=== PATIENT | male | born 1965 | race Caucasian/White ===

== ENCOUNTER 2020-05-09 12:21 | Outpatient (CLI) | payer OTHER, BC ==
--- NOTE | 2020-05-09 13:24 | XRAY Report ---
PROCEDURE: Knee 2 View RT INDICATIONS: KNEE PAIN,RT,ACUTE TECHNIQUE: 2 views of the right knee(s) were acquired. COMPARISON: None. FINDINGS: Bones: No fractures or dislocations. No suspicious bony lesions. There is moderate medial compartm ent and mild to moderate lateral compartment degenerative knee joint space thinning, to the degree th at significant asymmetric osteoarthritis appears present. Soft tissues: No joint effusion. No suspicious soft tissue calcifications. IMPRESSION: Asymmetric medial compartment degenerative knee joint osteoarthritis when compared to a lesser degree of degeneration at the lateral compartment. No trauma found. Reviewed by: Timothy Lancaster MD on 05/09/2020 1:23 PM PDT Approved by: Timothy Lancaster MD on 05/09/2020 1:23 PM PDT Station ID: [id number]
== END 2020-05-09 12:22 | disposition home or self-care (01) ==
LOC: DI 12:21
PROVIDERS: ATTEND Physician Assistant
DX: M17.11 Unilateral primary osteoarthritis, right knee (principal)

== ENCOUNTER 2021-12-19 10:04 | Outpatient (CLI) | payer OTHER, BC ==
--- NOTE | 2021-12-19 13:07 | XRAY Report ---
PROCEDURE: Toe(s) LT INDICATIONS: PAINFUL LT HALLUX TECHNIQUE: AP view of the foot and 2 views of the great toe. COMPARISON: None. FINDINGS: Bones: No acute fracture or dislocation. Possible mild cortical irregularity at the dorsal medial fir st proximal phalangeal head could represent a small erosion. No suspicious bony lesions. Soft tissues: No suspicious soft tissue densities. Prominent soft tissue edema in the great toe. IMPRESSION: Soft tissue edema in the great toe with questionable mild focal cortical irregularity at the dorsal m edial aspect of the first proximal phalangeal head. Findings could represent an inflammatory arthriti s or gout, versus cellulitis and possible osteomyelitis. Recommend correlation with clinical findings and laboratory values. Reviewed by: Kenny Bhatt MD on 12/19/2021 1:05 PM PDT Approved by: Kenny Bhatt MD on 12/19/2021 1:05 PM PDT Station ID: [id number]
== END 2021-12-19 10:05 | disposition home or self-care (01) ==
LOC: DI 10:04
PROVIDERS: ATTEND Podiatrist
DX: M79.675 Pain in left toe(s) (principal); M79.9 Soft tissue disorder, unspecified
CPT/HCPCS: 73660

== ENCOUNTER 2022-01-18 14:10 | Outpatient (CLI) | payer OTHER, BC ==
[2022-01-18 18:13] LABS: BASOPHILS % (AUTO) 0.7 %; EOSINOPHILS # (AUTO) 0.2 10^3/uL (0.0-0.7); EOSINOPHILS % (AUTO) 4.2 %; HCT - HEMATOCRIT 40.1 % (42.0-52.0); LYMPHOCYTES # (AUTO) 1.6 10^3/uL (1.5-3.5); LYMPHOCYTES % (AUTO) 28.7 %; MEAN CORPUSCULAR HEMOGLOBIN 31.9 pg (27.0-31.0); MEAN CORPUSCULAR HGB CONC 34.9 g/dL (32.0-36.0); MEAN CORPUSCULAR VOLUME 91.3 fL (80.0-94.0); MEAN PLATELET VOLUME 11.6 fL (7.4-11.4); MONOCYTES # (AUTO) 0.6 10^3/uL (0.0-1.0); MONOCYTES % (AUTO) 11.4 %; NEUTROPHILS % (AUTO) 54.8 %; PLT - PLATELET COUNT 184 10^3/uL (130-450); RED BLOOD COUNT 4.39 10^6/uL (4.70-6.10); RED CELL DISTRIBUTION WIDTH 12.9 % (12.0-15.0); WHITE BLOOD COUNT 5.5 x10^3/uL (4.8-10.8)
[2022-01-18 18:26] LABS: ALBUMIN 4.3 g/dL (3.2-5.5); ALBUMIN/GLOBULIN RATIO 1.7 (1.0-2.2); ALKALINE PHOSPHATASE 54 IU/L (42-121); ALT ALANINE AMINOTRANSFERASE 20 IU/L (10-60); AST ASPARTATE AMINOTRANSFERASE 19 IU/L (10-42); BILIRUBIN,TOTAL 1.1 mg/dL (0.2-1.0); BUN - BLOOD UREA NITROGEN 15 mg/dL (6-20); CALCIUM 9.2 mg/dL (8.5-10.3); CARBON DIOXIDE - CO2 27 mmol/L (21-32); CHLORIDE 102 mmol/L (101-111); CHOL/HDL RATIO 4.2 (<5.0); CHOLESTEROL 216 mg/dL; CREATININE 1.3 mg/dL (0.6-1.2); GFR - MDRD 57 (>89); GLUCOSE 83 mg/dL (70-100); HDL CHOLESTEROL 52 mg/dL; POTASSIUM 3.9 mmol/L (3.5-5.0); SODIUM 136 mmol/L (135-145); TOTAL PROTEIN 6.8 g/dL (6.7-8.2); TRIGLYCERIDES 439 mg/dL; URIC ACID 9.3 mg/dL (2.6-7.2)
[2022-01-18 18:38] LABS: THYROID STIMULATING HORMONE 4.34 uIU/mL (0.34-5.60)
[2022-01-18 19:19] LABS: LDL CHOLESTEROL,DIRECT 117 mg/dL; LDLD/HDL RATIO 2.3 (<3.6)
[2022-01-18 19:49] LABS: ESTIMATED AVERAGE GLUCOSE 117 mg/dL (70-100); HEMOGLOBIN A1c% 5.7 % (4.27-6.07)
== END 2022-01-18 14:11 | disposition home or self-care (01) ==
LOC: LAB.N 14:10
PROVIDERS: ATTEND Nurse Practitioner Family
DX: Z00.00 Encounter for general adult medical examination without abnormal findings (principal); Z13.220 Encounter for screening for lipoid disorders; E55.9 Vitamin D deficiency, unspecified; Z13.1 Encounter for screening for diabetes mellitus; M10.9 Gout, unspecified
CPT/HCPCS: 36415; 80053; 80061; 82306; 83036; 83721; 84443; 84550; 85025

== ENCOUNTER 2023-05-23 14:50 | Outpatient (CLI) | payer OTHER, BC ==
[2023-05-23 18:04] LABS: BASOPHILS % (AUTO) 0.4 %; EOSINOPHILS # (AUTO) 0.1 10^3/uL (0.0-0.7); EOSINOPHILS % (AUTO) 1.8 %; HGB - HEMOGLOBIN 14.2 g/dL (14.0-18.0); LYMPHOCYTES # (AUTO) 1.5 10^3/uL (1.5-3.5); LYMPHOCYTES % (AUTO) 29.9 %; MEAN CORPUSCULAR HEMOGLOBIN 30.9 pg (27.0-31.0); MEAN CORPUSCULAR VOLUME 93.7 fL (80.0-94.0); MEAN PLATELET VOLUME 11.8 fL (7.4-11.4); MONOCYTES # (AUTO) 0.5 10^3/uL (0.0-1.0); MONOCYTES % (AUTO) 10.7 %; NEUTROPHILS # (AUTO) 2.8 10^3/uL (1.5-6.6); PLT - PLATELET COUNT 180 10^3/uL (130-450); RED BLOOD COUNT 4.59 10^6/uL (4.70-6.10); RED CELL DISTRIBUTION WIDTH 12.7 % (12.0-15.0); WHITE BLOOD COUNT 4.9 x10^3/uL (4.8-10.8)
[2023-05-23 18:29] LABS: ALBUMIN 4.6 g/dL (3.2-5.5); ALBUMIN/GLOBULIN RATIO 2.7 (1.0-2.2); ALKALINE PHOSPHATASE 50 IU/L (42-121); ALT ALANINE AMINOTRANSFERASE 18 IU/L (10-60); AST ASPARTATE AMINOTRANSFERASE 16 IU/L (10-42); BUN - BLOOD UREA NITROGEN 14 mg/dL (6-20); CALCIUM 9.1 mg/dL (8.5-10.3); CARBON DIOXIDE - CO2 28 mmol/L (21-32); CHLORIDE 104 mmol/L (101-111); CHOL/HDL RATIO 3.3 (<5.0); CHOLESTEROL 195 mg/dL; CREATININE 1.1 mg/dL (0.6-1.3); GFR - MDRD 69 (>89); GLUCOSE 93 mg/dL (74-104); HDL CHOLESTEROL 59 mg/dL; LDL CHOLESTEROL,CALCULATED 104 mg/dL; LDL/HDL RATIO 1.8 (<3.6); POTASSIUM 4.1 mmol/L (3.5-4.5); SODIUM 139 mmol/L (135-145); TOTAL PROTEIN 6.3 g/dL (6.4-8.9); TRIGLYCERIDES 158 mg/dL (48-352); URIC ACID 7.7 mg/dL (4.4-7.6); VLDL CHOLESTEROL 32 mg/dL
[2023-05-23 18:37] LABS: THYROID STIMULATING HORMONE 2.64 uIU/mL (0.34-5.60)
[2023-05-23 21:31] LABS: ESTIMATED AVERAGE GLUCOSE 108 mg/dL (70-100); HEMOGLOBIN A1c% 5.4 % (4.27-6.07)
== END 2023-05-23 14:51 | disposition home or self-care (01) ==
LOC: LAB.N 14:50
PROVIDERS: ATTEND Nurse Practitioner Family
DX: Z00.00 Encounter for general adult medical examination without abnormal findings (principal); E78.1 Pure hyperglyceridemia; Z13.1 Encounter for screening for diabetes mellitus; E79.0 Hyperuricemia without signs of inflammatory arthritis and tophaceous disease
CPT/HCPCS: 36415; 80053; 80061; 83036; 83721; 84153; 84443; 84550; 85025

== ENCOUNTER 2023-12-23 14:41 | Outpatient (CLI) | payer BC | END 2023-12-23 14:42 | disposition home or self-care (01) | LOC: LAB.N 14:41 | PROVIDERS: ATTEND Physician Assistant Medical | DX: M10.9 Gout, unspecified (principal) | CPT/HCPCS: 36415; 84550 ==